=== PATIENT | female | born 1985 | race Caucasian/White ===

== ENCOUNTER 2024-01-01 08:22 | Day surgery (SDC) | payer OTHER ==
[~2024-01-01] VITALS: Ht 160 cm; Wt 56.0 kg
[2024-01-01] VITALS (9 sets, daily range): BP systolic 96–126; BP diastolic 63–96
[~2024-01-01 08:22] MED LIST: Cyclobenzaprine5 MG PO; LORA10ER PO; Lactated Ringer's 1,000 ML IV SCH; MULVITA PO
[2024-01-01] MEDS ORDERED: Caffeine 200 MG Tablet PO ONE ×2 (09:10→09:30)
[2024-01-01] MEDS ORDERED: PROBIOTIC1 EA13 PO (09:24)
[2024-01-01] MEDS ORDERED: Lidocaine HCl 1% 30 ML SDV ONE (09:35)
[2024-01-01] MEDS ORDERED: Bupivacaine 0.5% HCl 5 MG/ML 30MLVIAL ONE (09:35)
[2024-01-01] MEDS ORDERED: Midazolam HCl 1MG / ML 2ML Vial ONE (09:40)
[2024-01-01] MEDS ORDERED: FentaNYL Citrate 50 MCG/ML 2 ML Injection ONE (09:40)
[2024-01-01] MEDS ORDERED: propofoL 20 ML IV ONE (09:40)
[2024-01-01] MEDS ORDERED: Ondansetron HCl 2 MG / ML 2ML Vial ONE (10:47)
[2024-01-01] MEDS ORDERED: Metoclopramide HCl 5MG / ML 2ML Vial ONE (10:47)
[2024-01-01] MEDS ORDERED: HYDROcodone 5-APAP 325 TAB PO PRN (11:00)
--- NOTE | 2024-01-01 12:08 | NUR ---
DISCHARGE NOTE PT A&OX4, BREATHING RA, CALM, NO COMPLAINTS. PT HAD BOUT OF EMESIS BUT HAS SINCE RECOVERED AND STATES SHE IS FEELING BETTER- ABLE TO TOLERATE PO FLUIDS. AT BEDSIDE. PT HAS NO PAIN. Patient up to Ambulate independently. Gait steady.PT AMBULATED TO BR AND VOIDED. Dressing to procedure site clean, dry, intact with no visible drainage, swelling, erythema or bruising noted.RX FOR ONDANSETRON CALLED IN TO [facility] PER DR KIMBROUGH ORDERS. Discharged via wheelchair to private car for ride home.
== END 2024-01-01 12:00 | disposition home or self-care (01) ==
LOC: ORSCMMR 08:22 → ORD 09:45 → ORSCMMR 12:00
PROVIDERS: Surgery
PROC: 0JBL0ZX Excision of Right Upper Leg Subcutaneous Tissue and Fascia, Open Approach, Diagnostic (ICD-10-PCS; principal; 2024-01-01 09:45)
DX: L72.0 Epidermal cyst (principal); Z87.891 Personal history of nicotine dependence; Z79.899 Other long term (current) drug therapy
CPT/HCPCS: 88304; A9270; J2250; J2405; J2704; J2765; J3010; J7120